=== PATIENT | male | born 1970 | race Caucasian/White ===

== ENCOUNTER 2017-04-30 09:30 | Day surgery (SDC) | payer BC ==
[2017-04-27 11:55] VITALS: BMI 28.1
[2017-04-30] MEDS ORDERED: MIDAZOLAM HCL 2 MG/2 ML SINGLE DOSE VIAL ONE ×2 (13:38→15:06)
[2017-04-30] MEDS ORDERED: DEXAMETHASONE SOD PHOSPHATE/PF 10 MG/ML SDV ONE (13:38)
[2017-04-30] MEDS ORDERED: ROPIVACAINE HCL 0.5% 30ML VIAL ONE (13:38)
[2017-04-30] MEDS ORDERED: ACETAMINOPHEN INJECTION 100 ML IVPB ONE (13:44)
[2017-04-30] MEDS ORDERED: PROPOFOL 20 ML ONE ×3 (14:21)
[2017-04-30] MEDS ORDERED: ceFAZolin SODIUM 1 GM VIAL ONE (14:22)
[2017-04-30] MEDS ORDERED: SUCCINYLCHOLINE CHLORIDE 200 MG/10 ML VIAL ONE (14:22)
[2017-04-30] MEDS ORDERED: ACETAMINOPHEN 1000 MG/100 ML VIAL (NON FORMULARY) IVPB ONE (14:53)
[2017-04-30] MEDS ORDERED: LABETALOL HCL 5 MG/1 ML (100MG/20 ML VIAL) ONE (15:44)
[2017-04-30] MEDS ORDERED: DEXAMETHASONE SOD PHOSPHATE 4 MG/1 ML VIAL ONE (15:44)
[2017-04-30] MEDS ORDERED: ONDANSETRON 4 MG/2 ML VIAL ONE (15:44)
[2017-04-30] MEDS ORDERED: BENZOIN/ALOE VERA/STORAX/TOLU 58 ML BOTTLE ONE (16:25)
[2017-04-30] MEDS ORDERED: PATIENT'S OWN MEDICATION (NON-FORMULARY) (Hydrocodone/Acetaminophen [Vicodin 5-300 Mg Tabl PO SCH (16:30)
--- NOTE | 2017-04-30 16:35 | OP ---
Operative Note - Note: Operative Date: 04/30/17 Pre-Operative Diagnosis: Impingement Syndrome Right shoulder with rotator cuff tear Operation: RightNeer Decompression 1. Acromioplasty. 2. Excision ( [place]) 1cm clavulectomy. 3. Transection CA ligament. Repair rotator cuff Surgeon: Anthony Jackson Superintendent House: Jimmy Jackson Anesthesia: General Estimated Blood Loss (mls): 100 Operative Report Dictated: Yes
[2017-04-30] MEDS ORDERED: PROMETHAZINE HCL 25 MG/1 ML VIAL IVPUSH PRN (16:43)
[2017-04-30] MEDS ORDERED: oxyCODONE HCL 5 MG TABLET PO PRN ×2 (16:43)
[2017-04-30] MEDS ORDERED: ONDANSETRON 4 MG/2 ML VIAL IVPUSH PRN (16:43)
[2017-04-30 17:17] VITALS: PULSE 78; TEMP 98
[2017-04-30 17:19] VITALS: BP 135/78
[2017-05-01] MEDS ORDERED: ENALAPRIL MALEATE 10 MG TABLET (FP) PO SCH (10:00)
--- NOTE | 2017-05-01 16:11 | OP ---
DATE OF OPERATION: 05/01/2017 SURGEON: Anthony Jackson MD STOCK REPLENISHER: Jimmy Jackson MD PREOPERATIVE DIAGNOSES: Impingement syndrome, right shoulder, with rotator cuff tear. POSTOPERATIVE DIAGNOSES: Impingement syndrome, right shoulder, with rotator cuff tear. OPERATIONS PERFORMED: 1. Near-decompression with acromioplasty and Cora excision arthroplasty clavicle and transection of CA ligament. 2. Repair of rotator cuff. ANESTHESIA: Conscious sedation with scalene block. ANTIBIOTICS GIVEN: Kefzol of 2 grams preop. OPERATION IN DETAIL: Patient correctly identified and brought in the operating room. The right upper extremity was prepped in the routine manner with Betadine scrub solution, wiped off with alcohol, DuraPrep applied. With the patient in the beach-chair supine position, bolsters were placed under the inferior part of the scapula. The incision was made from the tip of the acromion to the tip of the coracoid. The plane of the subcutaneous tissue was expanded to expose the clavicle. A was placed on the superior and posterior aspect of the clavicle and a placed on the inferior undersurface of the clavicle to lift the clavicle as the AC joint was dissected. The soft tissue was left intact with the bone being dissected on the lateral side of the clavicle only. A beveled, oscillating saw cut was made. A 1-cm resection arthroplasty of the clavicle being performed. The AC joint was then completely opened in the plane of the AC joint. The deltoid ligament was split longitudinally in the plane of the fibers. The CA ligament was identified using a peanut. This ligament was then transected, freeing the underlying rotator cuff structures in the anterior aspect of the humeral head. This was then extended into the undersurface into the shoulder joint, per se. At that point, a Hohmann retractor was placed in the undersurface of the acromion, levering the humeral head inferiorly, giving excellent vision of a very tight, beaked acromion which was then resected, raising the roof of the head. The transection of the acromion was parallel to the superior surface of the acromion, accordingly. Once this had been performed with easy digital palpation, a wide-open subacromial space was created, and this enabled easy inspection of the rotator cuff. The bursa was resected. The cuff was inspected carefully. One small tear was identified and this was repaired with a number 1 Vicryl suture. Closure: Deltoid muscle 1 Vicryl after thorough lavage, subcutaneous 2-0 Vicryl, and skin 3-0 Monocryl with Steri-Strips. No drains utilized. Operation went well and no complications. MD BRITTA Linda/[id number]
--- NOTE | 2017-05-06 15:43 | PATH ---
Surgical Pathology Report Patient Name: NABIL BARNARD Med. Rec. #: [id number] /Age/Gender: 1970 (Age: 46) / M Account: [id number] Location: [facility] AMBULATORY Taken: 04/30/2017 Received: 04/30/2017 Reported: 05/06/2017 Physicians: Anthony Jackson M.D. Specimen(s) Received RIGHT DISTAL CLAVICLE Clinical History Right impingement syndrome Final Diagnosis DISTAL CLAVICLE, RIGHT, EXCISION: PORTION OF BONE AND CARTILAGE WITH NO PATHOLOGIC FINDINGS. Electronically Signed Sandy Martin M.D. Gross Description Received in formalin labeled "right distal clavicle," is a 3.0 x 2.3 x 0.9 cm smallwood, irregular portion of bone, consistent with a portion of clavicle. Fixture Designer sections are submitted in one cassette, following decalcification. 05/05/201705/05/2017
== END 2017-04-30 18:05 | disposition home or self-care (01) ==
LOC: FASU 09:30
PROVIDERS: ATTEND Orthopaedic Surgery Orthopaedic Surgery of the Spine
PROC: 0LB10ZZ Excision of Right Shoulder Tendon, Open Approach (ICD-10-PCS; principal; 2017-04-30 15:34)
PROC: 0PB90ZZ Excision of Right Clavicle, Open Approach (ICD-10-PCS; 2017-04-30 15:34)
DX: M75.41 Impingement syndrome of right shoulder (principal); M75.111 Incomplete rotator cuff tear or rupture of right shoulder, not specified as traumatic
CPT/HCPCS: 88304-TC; 88311-TC